=== PATIENT | male | born 1955 | race Caucasian/White ===

== ENCOUNTER → 2017-01-10 | Outpatient (CLI) | payer BC, OTHER ==
[~2017-01-10] MED LIST: ASPI-558 PO; MULT-806 PO; [UNRECOGNIZED DRUG - CODE] PO
--- NOTE | 2017-01-10 14:43 | DI ---
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 There is no pleural effusion or pneumothorax. The heart size, mediastinal contours and pulmonary vascularity are stable. IMPRESSION: Stable chest without acute cardiopulmonary disease. .
== END ==
LOC: IMA 13:58
PROVIDERS: ATTEND Family Medicine
DX: H15.001 Unspecified scleritis, right eye (principal)
CPT/HCPCS: 36415; 84550; 86021; 86038; 86431; 86592; 86618; 86780; 86812